=== PATIENT | male | born 1970 | race Caucasian/White ===

== ENCOUNTER 2023-04-27 16:19 | Emergency (ER) | payer OTHER, SELFPAY ==
[2023-04-27 17:07] VITALS: BP 141/11
[2023-04-27 19:55] VITALS: BP 128/81; BMI 26.7
[2023-04-27 20:00] VITALS: BP 130/88
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
[2023-04-27] MEDS: NSS 1000 IV (20:10)
[2023-04-27] MEDS: ZOFRAN 4 MG IV (20:14)
[2023-04-27] MEDS: PEPCID 20 MG IV (20:14)
[2023-04-27 20:32] LABS: % Basophils 0.2 % (0-2); % Immature Granulocytes 0.3 % (0-0.5); % Lymphocytes 12.7 % (20.5-51.1); % Neutrophils 78.8 % (42.2-75.2); Absolute Immature Granulocytes 0.1 10^3/uL (0-0.05); Absolute Lymphocytes 2.3 10^3/uL (1.2-3.4); Absolute Monocytes 1.4 10^3/uL (0.1-0.6); Absolute Neutrophils 14.1 10^3/uL (1.4-6.5); Hematocrit 44.6 % (39.0-52.0); Hemoglobin 15.9 g/dL (13.0-18.0); Mean Corp Hgb Conc. 35.7 g/dL (33.0-37.0); Mean Corpuscular Hgb 30.5 pg (27.0-31.0); Mean Corpuscular Volume 85.6 fL (80.0-94.0); Mean Platelet Volume 9.1 fL (7.4-10.4); Nucleated Red Blood Cells % 0 % (-); Platelet Count 407 10^3/uL (130-400); Red Blood Cell Count 5.21 10^6/uL (4.70-6.10); White Blood Cell Count 17.9 10^3/uL (4.8-10.8)
[2023-04-27 20:54] LABS: ALT (SGPT) 24 U/L (0-50); AST (SGOT) 27 U/L (17-59); Alkaline Phosphatase 116 U/L (38-126); Blood Urea Nitrogen 17 mg/dl (9-20); Calcium 9.8 mg/dl (8.4-10.2); Carbon Dioxide 23 mmol/L (22-30); Chloride 97 mmol/L (98-107); Estimated Creatinine Clearance 83 ml/min; Glucose 133 mg/dl (70-99); Potassium 4.4 mmol/L (3.5-5.1); Sodium 137 mmol/L (135-145); Total Bilirubin 1.5 mg/dl (0.2-1.3); Total Protein 8.1 g/dl (6.3-8.2); eGFR > 60.00
[2023-04-27 20:56] LABS: Lipase 101 U/L (23-300)
[2023-04-27] MEDS: ATIVAN 1 MG IV (22:04)
[2023-04-27 22:36] LABS: Troponin I < 0.012 ng/ml
[2023-04-27 22:44] LABS: Amphetamines Negative (Negative); Barbiturates Negative (Negative); Benzodiazepines Negative (Negative); Buprenorphine Negative (Negative); Cocaine Negative (Negative); Marijuana Positive (Negative); Methadone Negative (Negative); Methamphetamines Negative (Negative); Opiates Negative (Negative); Phencyclidine Negative (Negative); Tricyclic Antidepressants Negative (Negative)
[2023-04-28 02:17] VITALS: BP 102/59
[2023-04-28] MEDS: ATIVAN 1 MG PO (02:41)
== END 2023-04-28 02:47 | disposition home or self-care (01) ==
LOC: EMR 16:19
PROVIDERS: Emergency Medicine; Physician Assistant; EMERGENCY PHYSICIAN Emergency Medicine
DX: F19.10 Other psychoactive substance abuse, uncomplicated (principal); F17.200 Nicotine dependence, unspecified, uncomplicated; F12.90 Cannabis use, unspecified, uncomplicated
CPT/HCPCS: 99284; 96374; 96375 ×2; 96361; 80053; 80306; 83690; 84484; 85025; 93005

== ENCOUNTER → 2024-12-01 08:13 | Outpatient (REF) | payer BC, SELFPAY | LOC: RAD 08:13 | PROVIDERS: ATTENDING PHYSICIAN Internal Medicine; REFERRING PHYSICIAN Psychiatry & Neurology Neurology | DX: M54.51 Vertebrogenic low back pain (principal) | CPT/HCPCS: 72110 ==